=== PATIENT | female | born 1960 | race Caucasian/White ===

== ENCOUNTER → 2016-08-31 | Outpatient (CLI) | payer BC ==
--- NOTE | 2016-09-01 08:20 | MM ---
Reason for exam: screening (asymptomatic). Last mammogram was performed 1 year and 1 month ago. History: Patient is postmenopausal. Physical Findings: A clinical breast exam by your physician is recommended on an annual basis and results should be correlated with mammographic findings. MG Screening Mammo w CAD Bilateral CC and MLO view(s) were taken. Prior study comparison: July 31, 2015, bilateral MG screening mammo w CAD. June 25, 2014, bilateral MG screening mammo w CAD. There are scattered fibroglandular densities. No significant changes when compared with prior studies. ASSESSMENT: Benign, BI-RAD 2 RECOMMENDATION: Routine screening mammogram of both breasts in 1 year.
== END | disposition home or self-care (01) ==
LOC: RADMAMWWP 10:46
PROVIDERS: ATTEND Obstetrics & Gynecology
DX: Z12.31 Encounter for screening mammogram for malignant neoplasm of breast (principal)

== ENCOUNTER → 2017-06-24 | Outpatient (CLI) | payer BC ==
--- NOTE | 2017-06-24 19:36 | CT ---
EXAMINATION TYPE: CT chest w con DATE OF EXAM: 06/24/2017 COMPARISON: Previous study dated 12/26/2015 HISTORY: Spot on lung-recheck CT DLP: 489.6 mGycm Automated exposure control for dose reduction was used. CONTRAST: CT scan of the chest is performed with IV Contrast, patient injected with 100 mL of Omnipaque 300. FINDINGS: Irregular density in the superior segment of the right lower lobe has cleared. No parenchym al abnormalities demonstrated on today's exam. There is no significant axillary, internal mammary, mediastinal or hilar adenopathy. There is no pleu ral or pericardial fluid. The heart is not enlarged. Visualized portions of the upper abdomen are unremarkable. The gallbladder has been removed. There is mild hypertrophic spondylosis within the spine. IMPRESSION: 1. RESOLUTION OF THE IRREGULAR DENSITY IN THE SUPERIOR SEGMENT OF THE RIGHT LOWER LOBE. 2. MILD DEGENERATIVE CHANGE IN THE SPINE.
== END | disposition home or self-care (01) ==
LOC: RADCTMAIN 18:44
PROVIDERS: ATTEND Internal Medicine Critical Care Medicine
DX: J45.901 Unspecified asthma with (acute) exacerbation (principal)
CPT/HCPCS: 71260; Q9967

== ENCOUNTER → 2018-01-06 | Outpatient (CLI) | payer BC ==
--- NOTE | 2018-01-10 10:02 | MM ---
Reason for exam: screening (asymptomatic). Last mammogram was performed 1 year and 4 months ago. History: Patient is postmenopausal. Physical Findings: A clinical breast exam by your physician is recommended on an annual basis and results should be correlated with mammographic findings. MG Screening Mammo w CAD Bilateral CC and MLO view(s) were taken. Prior study comparison: August 31, 2016, bilateral MG screening mammo w CAD. July 31, 2015, bilateral MG screening mammo w CAD. There are scattered fibroglandular densities. No suspicious abnormality. No significant changes when compared with prior studies. ASSESSMENT: Negative, BI-RAD 1 RECOMMENDATION: Routine screening mammogram of both breasts in 1 year.
== END | disposition home or self-care (01) ==
LOC: RADMAMWWP 07:23
PROVIDERS: ATTEND Obstetrics & Gynecology
DX: Z12.31 Encounter for screening mammogram for malignant neoplasm of breast (principal)
CPT/HCPCS: 77067

== ENCOUNTER → 2018-01-24 | Outpatient (CLI) | payer BC | END | disposition home or self-care (01) | LOC: LABWHC1 06:33 | PROVIDERS: ATTEND Family Medicine | DX: E78.5 Hyperlipidemia, unspecified (principal); M25.50 Pain in unspecified joint; E03.9 Hypothyroidism, unspecified | CPT/HCPCS: 36415; 80061; 84439; 86431 ==

== ENCOUNTER → 2018-01-24 | Outpatient (CLI) | payer BC ==
--- NOTE | 2018-01-24 11:57 | XR ---
EXAMINATION TYPE: XR scoliosis survey DATE OF EXAM: 01/24/2018 COMPARISON: Correlation CT chest 06/24/2017 HISTORY: 57 year-old female with back pain and scoliosis TECHNIQUE: Standing AP and lateral views FINDINGS: There are 12 rib bearing thoracic vertebral bodies. Reverse S-shaped scoliosis is noted. Levoconvex curvature of the mid to lower thoracic spine with Cob b angle of 23 degrees. Approximated at 18 degrees on the supine position CT of 06/24/2017. Likely acc entuated now due to standing views. Dextroconvex curvature of the upper to mid lumbar spine with Jordan angle of 24 degrees. At least moder ate multilevel degenerative disc disease present throughout the lumbar spine. Grade 1 retrolistheses are noted at T12-L1 and L1-L2. IMPRESSION: 1. Reverse S-shaped scoliosis of the thoracolumbar spine. Upper Jordan angle of 23 degrees and lower Co bb angle of 24 degrees. 2. Moderate spondylotic changes particularly in the lumbar spine. 3. Degenerative grade 1 retrolisthesis at T12-L1 and L1-L2.
== END | disposition home or self-care (01) ==
LOC: RADXRMAIN 10:29
PROVIDERS: ATTEND Family Medicine
DX: M43.15 Spondylolisthesis, thoracolumbar region (principal); M47.815 Spondylosis without myelopathy or radiculopathy, thoracolumbar region; M41.85 Other forms of scoliosis, thoracolumbar region
CPT/HCPCS: 72082

== ENCOUNTER → 2018-11-08 | Outpatient (CLI) | payer BC ==
[2018-11-08 17:11] LABS: ALT 30 U/L (8-44); AST 28 U/L (13-35); Albumin/Globulin Ratio 2.26 (1.60-3.17); Alkaline Phosphatase 62 U/L (41-126); Calcium 9.2 mg/dL (8.7-10.3); Carbon Dioxide 27.6 mmol/L (21.6-31.8); Chloride 106 mmol/L (96-109); Cholesterol 179 mg/dL (0-200); Globulin 1.9 g/dL (1.6-3.3); Glucose 93 mg/dL (70-110); Potassium 4.5 mmol/L (3.5-5.5); Sodium 141 mmol/L (135-145); Total Bilirubin 0.6 mg/dL (0.2-1.2); Total Protein 6.2 g/dL (6.2-8.2); Triglycerides <50.0 mg/dL (0.0-149.0); VLDL Calculation 9.98 mg/dL (5.00-40.00)
== END ==
LOC: LABWHC1 06:37
PROVIDERS: ATTEND Family Medicine
DX: E78.5 Hyperlipidemia, unspecified (principal); E03.9 Hypothyroidism, unspecified; I10 Essential (primary) hypertension
CPT/HCPCS: 36415; 80053; 80061; 84439; 84443

== ENCOUNTER → 2019-03-13 | Outpatient (CLI) | payer BC ==
--- NOTE | 2019-03-14 08:20 | MM ---
Reason for exam: screening (asymptomatic). Last mammogram was performed 1 year and 2 months ago. History: Patient is postmenopausal. Physical Findings: A clinical breast exam by your physician is recommended on an annual basis and results should be correlated with mammographic findings. MG Screening Mammo w CAD Bilateral CC and MLO view(s) were taken. Prior study comparison: January 06, 2018, bilateral MG screening mammo w CAD. August 31, 2016, bilateral MG screening mammo w CAD. There are scattered fibroglandular densities. No suspicious abnormality. No significant changes when compared with prior studies. ASSESSMENT: Negative, BI-RAD 1 RECOMMENDATION: Routine screening mammogram of both breasts in 1 year.
== END | disposition home or self-care (01) ==
LOC: RADMAMWWP 09:36
PROVIDERS: ATTEND Obstetrics & Gynecology
DX: Z12.31 Encounter for screening mammogram for malignant neoplasm of breast (principal)
CPT/HCPCS: 77067

== ENCOUNTER → 2020-03-22 | Outpatient (CLI) | payer BC ==
--- NOTE | 2020-03-25 09:53 | MM ---
Reason for exam: screening (asymptomatic). Last mammogram was performed 1 year ago. History: Patient is postmenopausal. Physical Findings: A clinical breast exam by your physician is recommended on an annual basis and results should be correlated with mammographic findings. MG Screening Mammo w CAD Bilateral CC and MLO view(s) were taken. Prior study comparison: March 13, 2019, bilateral MG screening mammo w CAD. January 06, 2018, bilateral MG screening mammo w CAD. There are scattered fibroglandular densities. There is no discrete abnormality. No significant changes when compared with prior studies. ASSESSMENT: Negative, BI-RAD 1 RECOMMENDATION: Routine screening mammogram of both breasts in 1 year.
== END | disposition home or self-care (01) ==
LOC: RADMAMWWP 10:18
PROVIDERS: ATTEND Obstetrics & Gynecology
DX: Z12.31 Encounter for screening mammogram for malignant neoplasm of breast (principal)
CPT/HCPCS: 77067

== ENCOUNTER → 2021-04-30 | Outpatient (CLI) | payer BC ==
--- NOTE | 2021-04-30 21:11 | BD ---
EXAMINATION TYPE: Axial Bone Density DATE OF EXAM: 04/30/2021 COMPARISON: 2013 CLINICAL HISTORY: Postmenopausal screening Height: 65.5 Weight: 205.9 FRAX RISK QUESTIONS: Alcohol (3 or more units per day): no Family History (Parent hip fracture): no Glucocorticoids (More than 3mos): no (Ex: prednisone, prednisolone, methylprednisolone, dexamethasone, and hydrocortisone). History of Fracture in Adulthood: no Secondary Osteoporosis: 1. Type 1 Diabetes: no 2. Hyperthyroidism: no 3. Menopause before 45: no 4. Malnutrition: no 5. Chronic liver disease: no Rheumatoid Arthritis: no Current Tobacco Use: no RISK FACTORS HISTORY OF: Surgery to Spine/Hip(right/left)/Wrist (right/left): no Family History of Osteoporosis: no Active: yes Diet low in dairy products/other sources of calcium: yes Postmenopausal woman: yes Lost more than 2 inches in height since high school: no MEDICATIONS: asthma meds, losartan, Crestor Thyroid Medications: levothyroxine How Lon + years Additional History: EXAM MEASUREMENTS: Bone mineral densitometry was performed using the Bolt System. Bone mineral density as measured about the Lumbar spine is: ----- L1-L4(G/cm2): 0.917 T Score Values are as follows: ----- L2: -1.8 ----- L3: -1.6 ----- L4: -2.1 ----- L1-L4: -2.2 Bone mineral density has: decreased -15.4 % since study of: 06.25.2014 Bone mineral density about the R hip (g/cm2): 0.864 Bone mineral density about the L hip (g/cm2): 0.933 T Score values are as follows: -----R Neck: -1.2 -----L Neck: -0.8 -----R Total: -1.1 -----L Total: -0.9 Bone mineral density has: decreased -7.1 % since study of: 06.25.2014 IMPRESSION: Osteopenia (T Score between -2.5 and -1). There is slightly increased risk of fracture and the patient may be considered for treatment. Re-Screen 2-5 years. NOTE: T-SCORE=SD OF THE YOUNG ADULT MEAN.
--- NOTE | 2021-05-01 13:56 | MM ---
Reason for exam: screening (asymptomatic). Last mammogram was performed 1 year and 1 month ago. History: Patient is postmenopausal. Physical Findings: A clinical breast exam by your physician is recommended on an annual basis and results should be correlated with mammographic findings. MG Screening Mammo w CAD Bilateral CC and MLO view(s) were taken. Prior study comparison: March 22, 2020, bilateral MG screening mammo w CAD. March 13, 2019, bilateral MG screening mammo w CAD. There are scattered fibroglandular densities. No significant changes when compared with prior studies. ASSESSMENT: Benign, BI-RAD 2 RECOMMENDATION: Routine screening mammogram of both breasts in 1 year.
== END | disposition home or self-care (01) ==
LOC: RADBDWWP 11:29
PROVIDERS: ATTEND Obstetrics & Gynecology
DX: Z12.31 Encounter for screening mammogram for malignant neoplasm of breast (principal); Z13.820 Encounter for screening for osteoporosis; M85.89 Other specified disorders of bone density and structure, multiple sites; Z78.0 Asymptomatic menopausal state
CPT/HCPCS: 77067; 77080

== ENCOUNTER 2022-06-08 07:38 | Emergency (ER) | payer BC ==
[2022-06-08 07:45] VITALS: TEMP 98
--- NOTE | 2022-06-08 08:02 | ED ---
General Adult HPI - General Chief complaint: Fall Stated complaint: fall, rib injury Time Seen by Provider: 06/08/22 07:45 Source: patient, RN notes reviewed, old records reviewed Mode of arrival: ambulatory Limitations: no limitations - History of Present Illness Initial comments: Patient is a 62-year-old female with past medical history remarkable for asthma, hypertension who presents emergency Department complaining of left-sided rib pain, mild left hip pain since falling on Wednesday. She states she walked out onto her deck on Wednesday, currently it is Wednesday. She slipped on the ice and fell onto her left side, striking left hip and left chest on the ground. NOt on blood thinners. Did not seek medical attention immediately after the fall she was feeling okay. Has had minimal issues but presents today for evaluation due to some of worsening left rib pain, as well as a mildly productive cough of a clear pinkish sputum that started overnight. Is concerned she may have developed a pneumonia or lung injury. Also some mild left hip pain with some bruising at the site. Denies any spine pain. Denies any abdominal pain, nausea, vomiting. Is not on blood thinners. No other obvious injuries at this time. Denies any difficulty breathing but does endorse pain with deep inspiration on the left side that is nonspecific but primarily below her left breast. No other concerns at this time. - Related Data Home Medications Medication Instructions Recorded Confirmed ALPRAZolam [Xanax] 0.25 mg PO TID PRN 07/11/14 12/19/15 Fexofenadine HCl [Mya Allergy] 180 mg PO QAM 07/11/14 12/19/15 Fluticasone Propion/Salmeterol 1 puff INHALATION RT-BID 07/11/14 12/19/15 [Advair 500-50 Diskus] Levothyroxine Sodium [Synthroid] 50 mcg PO DAILY 07/11/14 12/19/15 Montelukast [Singulair] 10 mg PO DAILY 07/11/14 12/19/15 Rosuvastatin Calcium [Crestor] 10 mg PO DAILY 07/11/14 12/19/15 Valsartan [Diovan] 320 mg PO QAM 07/11/14 12/19/15 Ibuprofen [Motrin] 200 - 400 mg PO Q6HR PRN 12/19/15 12/19/15 Ibuprofen [Motrin] 800 mg PO TID PRN 12/19/15 12/19/15 Previous Rx's Medication Instructions Recorded Hydrocodone/Acetaminophen [[place] 1 each PO Q6HR PRN #20 tab 12/19/15 5-325] Levofloxacin [Levaquin] 500 mg PO DAILY 7 Days tab 12/19/15 Lidocaine 5% Patch [Lidoderm 5% 1 patch TOPICAL DAILY PRN 7 Days 06/08/22 Patch] #7 patch Allergies Allergy/AdvReac Type Severity Reaction Status Date / Time meperidine HCl [From Demerol] Allergy Nausea & Verified 06/08/22 07:45 Vomiting Review of Systems ROS Statement: Those systems with pertinent positive or pertinent negative responses have been documented in the HPI. Review of Systems: CONST: Denies fever EYES: Denies blurry vision ENT: Denies nasal congestion C/V: Denies Chest pain RESP: Denies shortness of breath GI: Denies abdominal pain : Denies dysuria SKIN: Denies rash. MSK: Endorses left hip pain, left rib pain. NEURO: Denies headache ROS Other: All systems not noted in ROS Statement are negative. Past Medical History Past Medical History: Asthma, Hypertension, Thyroid Disorder Additional Past Medical History / Comment(s): diverticulitis History of Any Multi-Drug Resistant Organisms: None Reported Past Surgical History: Cholecystectomy Additional Past Surgical History / Comment(s): utereine ablation d & c Past Psychological History: No Psychological Hx Reported Smoking Status: Never smoker Past Alcohol Use History: Occasional Past Drug Use History: None Reported General Exam - General Exam Comments Initial Comments: General: Appears in no acute distress. HEAD: Normal with no signs of head trauma. EYES: Pupils 3 mm equal bilaterally, EOMI, conjunctiva normal, no discharge. ENT: Hearing grossly intact, normal oropharynx. RESPIRATORY: Clear breath sounds bilaterally. No wheezes, rales, or rhonchi. No hypoxia. No increased work of breathing. C/V: Regular rate and rhythm. S1 and S2 auscultated, no edema, peripheral pulses 2+ and intact throughout ABD: Abd is soft, nontender, nondistended EXT: Normal range of motion, no obvious deformity no spinal tenderness to palpation. Pelvis is stable. Mild left hip tenderness to palpation. Left anterior axillary line to mid clavicular line inferior rib tenderness to palpation with no skin changes. No obvious step-offs or deformities of the ribs. No obvious bruising. Pain is primarily beneath her left breast. SKIN: No rashes or lesions observed on exposed skin. NEURO: Alert and oriented 4. GCS is 15. No focal deficits. Ambulatory without difficulty. Limitations: no limitations Course Vital Signs 06/08/22 07:42 Temperature 98 F Pulse Rate 110 H Respiratory 20 Rate Blood Pressure 186/102 O2 Sat by Pulse 99 Oximetry Medical Decision Making - Medical Decision Making Based on the patient's presentation and physical exam, I'm concerned for any traumatic injury following a fall. She does have palpable musculoskeletal pain primarily of the left sided inferior ribs as well as left hip. We will obtain x-rays of the left hip and pelvis as well as left ribs and chest. She claims analgesia medications at this time. Vital signs are within acceptable limits. She was in agreement with this plan. She is in no respiratory distress. Patient's x-rays were negative for any acute injury. I discussed the results with the patient. We discussed that she likely has musculoskeletal strains and sprains. Possible rib contusion as well. She will be given an incentive spirometer at home. Can continue [id number] analgesia medications she will be given a prescription for lidocaine patches. She was in agreement this plan. I will provide the patient with a prescription for lidocaine patches. I instructed the patient to follow up with their PCP in the next 1-3 days. I explained that the patient should return to the emergency department if they experience any worsening symptoms. Strict return precautions were discussed with the patient. The patient expressed understanding of these instructions. I answered all questions that the patient had. The patient was discharged home in good condition with their prescriptions and follow up information. Disposition Clinical Impression: Fall, Musculoskeletal pain, Contusion of rib on left side Disposition: HOME SELF-CARE Condition: Good Instructions (If sedation given, give patient instructions): How to Use an Incentive Spirometer (ED), Fall Prevention (ED), Rib Contusion (ED) Prescriptions: Lidocaine 5% Patch [Lidoderm 5% Patch] 1 patch TOPICAL DAILY PRN 7 Days #7 patch PRN Reason: Pain Is patient prescribed a controlled substance at d/c from ED?: No Referrals: Nicola Bergman MD [Primary Care Provider] - 1-2 days Time of Disposition: 08:40
--- NOTE | 2022-06-08 08:36 | XR ---
EXAMINATION TYPE: PA chest and left rib series, 5 views DATE OF EXAM: 06/08/2022 Comparison: 12/20/2015 Clinical History: 62-year-old female fall, pain Findings: Heart normal size. Aorta and pulmonary vasculature within normal limits. Strandy atelectasis in the l ower lungs. No consolidation or pleural effusion. Left ribs: No displaced left rib fracture seen. Cholecystectomy clips. Impression: Strandy bibasilar atelectasis. No displaced left rib fracture seen. No acute cardiopulmonary process.
--- NOTE | 2022-06-08 08:40 | XR ---
EXAMINATION TYPE: AP view pelvis and 2 views left hip DATE OF EXAM: 06/08/2022 Comparison: None Clinical History: 62-year-old female fall, left hip pain and bruising Findings: Degenerative changes lower lumbar spine. Mild degenerative changes bilateral SI joints. Pubic symphys is is intact. Bilateral hips appear symmetrical and intact. Pelvic phleboliths. No acute fracture, moise bluxation, or dislocation. Impression: No acute osseous abnormality seen.
[2022-06-08 09:04] VITALS: BP 143/83; PULSE 81; RESP 16
== END 2022-06-08 09:04 | disposition home or self-care (01) ==
LOC: EC 07:38
DX: S20.20XA Contusion of thorax, unspecified, initial encounter (principal); M25.552 Pain in left hip; J45.909 Unspecified asthma, uncomplicated; I10 Essential (primary) hypertension; E07.9 Disorder of thyroid, unspecified; Z88.8 Allergy status to other drugs, medicaments and biological substances; Z79.890 Hormone replacement therapy; Z79.899 Other long term (current) drug therapy; Z79.51 Long term (current) use of inhaled steroids; W00.0XXA Fall on same level due to ice and snow, initial encounter; Y92.89 Other specified places as the place of occurrence of the external cause
CPT/HCPCS: 73502; 99284

== ENCOUNTER → 2023-05-31 | Outpatient (CLI) | payer BC ==
--- NOTE | 2023-05-31 08:14 | MM ---
Reason for Exam: Follow-up at short interval from prior study. Last screening mammogram was performed 8 month(s) ago. Patient History: Menarche at age 13. First Full-Term at age 29. Postmenopausal. Patient has history of breast feeding. Risk Values: Zahida 5 year model risk: 1.7%. NCI Lifetime model risk: 7.7%. Prior Study Comparison: 03/22/2020 Bilateral Screening Mammogram, [facility]. 04/30/2021 Bilateral Screening Mammogram, [facility]. 09/24/2022 Bilateral MG screening mammo w CAD, [facility]. Tissue Density: Right: There are scattered fibroglandular densities. Findings: Analyzed By CAD. No new suspicious masses, calcifications or distortions. Area of concern within the right breast is on the most inferior 3-D imaging slices and may be on the skin. Overall Assessment: Benign, BI-RAD 2 Management: Screening Mammogram of both breasts in 1 year. Results were given to the patient verbally at the time of exam. Patient should continue monthly self-breast exams. A clinical breast exam by your physician is recommended on an annual basis. This exam should not preclude additional follow-up of suspicious palpable abnormalities. Note on Zahida scores and lifetime risk: 1. A Zahida score greater than 3% is considered moderate risk. If this is the case, consider specialist referral to assess eligibility for a risk reducing agent. 2. If overall lifetime risk for the development of breast cancer is 20% or higher, the patient may qualify for future screening with alternating mammogram and breast MRI. Electronically signed and approved by: Joselo Queen DO
== END | disposition home or self-care (01) ==
LOC: RADMAMWWP 07:39
PROVIDERS: ATTEND Obstetrics & Gynecology
DX: N64.4 Mastodynia (principal); R92.321 Mammographic fibroglandular density, right breast; Z78.0 Asymptomatic menopausal state
CPT/HCPCS: 77061; 77065

== ENCOUNTER → 2023-09-28 | Outpatient (CLI) | payer BC ==
--- NOTE | 2023-09-28 22:19 | BD ---
EXAMINATION TYPE: Axial Bone Density DATE OF EXAM: 09/28/2023 CLINICAL HISTORY: 63 years old Female. ICD-10 CODE: M85.88 OSTEOPENEA Height: 65.2 Weight: 176 FRAX RISK QUESTIONS: Glucocorticoids (More than 3mos): Serevent for asthma, otc decongestant (Ex: prednisone, prednisolone, methylprednisolone, dexamethasone, and hydrocortisone). 3. Menopause before 45: no 57 yrs old 0.865 RISK FACTORS HISTORY OF: nothing to note here, MEDICATIONS: Thyroid Medications: yes, synthroid product since young adult vit d and multivitamin, bp meds, statin for cholesterol EXAM MEASUREMENTS: Bone mineral densitometry was performed using the [employer] System. Bone mineral density as measured about the Lumbar spine is: ----- L1-L4(G/cm2): 0.865 T Score Values are as follows: ----- L1: -3.4 ----- L2: -2.7 ----- L3: -2.9 ----- L4: -1.8 ----- L1-L4: -2.6 Z Score Values are as follows: ----- L1: -2.5 ----- L2: -1.8 ----- L3: -2.0 ----- L4: -0.9 ----- L1-L4: -1.7 Bone mineral density has: Decreased -5.7% since study of: 04.30.2021 Bone mineral density about the R hip (g/cm2): 0.808 Bone mineral density about the L hip (g/cm2): 0.827 T Score values are as follows: -----R Neck: -1.4 -----L Neck: -1.3 -----R Total: -1.6 -----L Total: -1.4 Z Score values are as follows: -----R Neck: -0.3 -----L Neck: -0.3 -----R Total: -0.9 -----L Total: -0.7 Bone mineral density has: Decreased -7.9% since study of: 04.30.2021 FRAX%s: The graph provided illustrates a 12.7% chance for a major osteoporotic fx and a 1.2% chance f or the hips probability for fx in 10 years time. IMPRESSION: Osteoporosis (T Score less than -2.5). There is increased fracture risk and therapy is usually indicated based on age. Re-Screen 1-2 years. NOTE: T-SCORE=SD OF THE YOUNG ADULT MEAN.
--- NOTE | 2023-09-29 20:07 | MM ---
Reason for Exam: Screening (asymptomatic). Last screening mammogram was performed 12 month(s) ago. Patient History: Menarche at age 13. First Full-Term at age 29. Postmenopausal. Patient has history of breast feeding. Risk Values: Zahida 5 year model risk: 1.7%. NCI Lifetime model risk: 7.7%. Prior Study Comparison: 04/30/2021 Bilateral Screening Mammogram, [facility]. 09/24/2022 Bilateral MG screening mammo w CAD, [facility]. 05/31/2023 Right MG 3D diag mammo w/cad RT, [facility]. Tissue Density: There are scattered fibroglandular densities. Findings: Analyzed By CAD. There is no suspicious group of microcalcifications or new suspicious mass in either breast. Overall Assessment: Negative, BI-RAD 1 Management: Screening Mammogram of both breasts in 1 year. . Patient should continue monthly self-breast exams. A clinical breast exam by your physician is recommended on an annual basis. This exam should not preclude additional follow-up of suspicious palpable abnormalities. Note on Zahida scores and lifetime risk: 1. A Zahida score greater than 3% is considered moderate risk. If this is the case, consider specialist referral to assess eligibility for a risk reducing agent. 2. If overall lifetime risk for the development of breast cancer is 20% or higher, the patient may qualify for future screening with alternating mammogram and breast MRI. Electronically signed and approved by: Tyron Renee M.D. Radiologist
== END | disposition home or self-care (01) ==
LOC: RADMAMWWP 08:55
PROVIDERS: ATTEND Obstetrics & Gynecology
DX: Z12.31 Encounter for screening mammogram for malignant neoplasm of breast (principal); M81.0 Age-related osteoporosis without current pathological fracture; M85.89 Other specified disorders of bone density and structure, multiple sites
CPT/HCPCS: 77063; 77067; 77080

== ENCOUNTER → 2024-11-13 | Outpatient (CLI) | payer BC ==
--- NOTE | 2024-11-13 16:52 | MM ---
Reason for Exam: Screening (asymptomatic). Last mammogram was performed 1 year(s) and 2 month(s) ago. Patient History: Menarche at age 13. First Full-Term at age 29. Postmenopausal. Patient has history of breast feeding. Risk Values: Zahida 5 year model risk: 1.7%. NCI Lifetime model risk: 7.4%. Prior Study Comparison: 09/24/2022 Bilateral MG screening mammo w CAD, [facility]. 05/31/2023 Right MG 3D diag mammo w/cad RT, [facility]. 09/28/2023 Bilateral MG 3D screening mammo w/cad, [facility]. Tissue Density: There are scattered areas of fibroglandular density. Findings: Analyzed By CAD. Focal asymmetry 12:00 left breast middle depth is more defined. This may represent superimposition shadow but further evaluation is recommended. Otherwise, no significant change. Overall Assessment: Incomplete: need additional imaging evaluation, BI-RAD 0 Management: Special View Mammogram of the left breast. [facility] will attempt to contact patient to return for supplemental views and ultrasound if indicated. [facility], , 11/13/2024 4:49 PM. Electronically signed and approved by: Tyron Renee M.D. Radiologist
== END | disposition home or self-care (01) ==
LOC: RADMAMWWP 14:03
PROVIDERS: ATTEND Internal Medicine
DX: Z12.31 Encounter for screening mammogram for malignant neoplasm of breast (principal); R92.323 Mammographic fibroglandular density, bilateral breasts; Z78.0 Asymptomatic menopausal state
CPT/HCPCS: 77067

== ENCOUNTER → 2024-11-14 | Outpatient (CLI) | payer BC ==
--- NOTE | 2024-11-14 13:27 | MM ---
Reason for Exam: Additional evaluation requested from abnormal screening. Last screening mammogram was performed less than 1 month ago. Patient History: Menarche at age 13. First Full-Term at age 29. Postmenopausal. Patient has history of breast feeding. Risk Values: Zahida 5 year model risk: 1.7%. NCI Lifetime model risk: 7.4%. Prior Study Comparison: 05/31/2023 Right MG 3D diag mammo w/cad RT, [facility]. 09/28/2023 Bilateral MG 3D screening mammo w/cad, [facility]. 11/13/2024 Bilateral MG screening mammo w CAD, [facility]. Tissue Density: Left: There are scattered areas of fibroglandular density. Findings: Analyzed By CAD. On spot compression, the area becomes less defined but incompletely disperses. On tomographic images, the area becomes more favorable to superimposition shadow. Precautionary 6 month follow-up recommended. Overall Assessment: Probably benign, BI-RAD 3 Management: Diagnostic Mammogram of the left breast in 6 months. Results were given to the patient verbally at the time of exam. Patient should continue monthly self-breast exams. A clinical breast exam by your physician is recommended on an annual basis. This exam should not preclude additional follow-up of suspicious palpable abnormalities. Note on Zahida scores and lifetime risk: 1. A Zahida score greater than 3% is considered moderate risk. If this is the case, consider specialist referral to assess eligibility for a risk reducing agent. 2. If overall lifetime risk for the development of breast cancer is 20% or higher, the patient may qualify for future screening with alternating mammogram and breast MRI. [facility], , 11/14/2024 1:25 PM. Electronically signed and approved by: Tyron Renee M.D. Radiologist
== END | disposition home or self-care (01) ==
LOC: RADMAMWWP 12:58
PROVIDERS: ATTEND Internal Medicine
DX: R92.8 Other abnormal and inconclusive findings on diagnostic imaging of breast (principal); R92.332 Mammographic heterogeneous density, left breast; Z78.0 Asymptomatic menopausal state
CPT/HCPCS: 77061; 77065